=== PATIENT | male | born 1990 | race Hispanic/Latino ===

== ENCOUNTER 2020-03-04 13:07 | Emergency (ER) | payer MEDICAID, SELFPAY ==
--- NOTE | 2020-03-04 15:37 | RAD REPORT ---
EXAM DESCRIPTION: RAD - Foot Right 3 View - 03/04/2020 3:31 pm CLINICAL HISTORY: PAIN, blunt force trauma to the foot COMPARISON: No comparisons FINDINGS: Oblique fracture is present through the mid and distal proximal first phalanx. No distract ion or angulation component. First distal phalanx is intact. No other fracture changes identified. No acute bone or joint process otherwise noted. No air or foreign body in the soft tissues. IMPRESSION: Nondisplaced, nonangulated fracture of the first proximal phalanx right foot.
--- NOTE | 2020-03-04 15:40 | ER ---
Nurse's Notes [facility] Name: Jean Roman Age: 29 yrs Sex: Male : 1990 Arrival Date: 03/04/2020 Time: 13:10 Bed 24 Private MD: Diagnosis: Nondisplaced fracture of proximal phalanx of right great toe Presentation: 03/04 13:56 Chief complaint: Patient states: Toe pain x 2 days after a piece of furniture fell on ss it. Coronavirus screen: Client denies travel out of the [place] in the last 14 days. Ebola Screen: Patient denies exposure to infectious person. Patient denies travel to an Ebola-affected area in the 21 days before illness onset. Initial Sepsis Screen: Does the patient meet any 2 criteria? No. Patient's initial sepsis screen is negative. Does the patient have a suspected source of infection? No. Patient's initial sepsis screen is negative. Risk Assessment: Do you want to hurt yourself or someone else? Patient reports no desire to harm self or others. Onset of symptoms was March 02, 2020. 13:56 Method Of Arrival: Ambulatory ss 13:56 Acuity: GENARO 4 ss Triage Assessment: 16:21 General: Behavior is calm, cooperative, appropriate for age. zb Historical: - Allergies: 13:57 No Known Allergies; ss - Home Meds: 13:57 None [Active]; ss - PMHx: 13:57 None; ss - Immunization history:: Adult Immunizations up to date. - Social history:: Smoking status: Patient denies any tobacco usage or history of. Screenin:30 Abuse screen: Denies threats or abuse. Denies injuries from another. Nutritional zb screening: No deficits noted. Tuberculosis screening: No symptoms or risk factors identified. Fall Risk None identified. Assessment: 15:30 General: Appears in no apparent distress. uncomfortable. Pain: Complains of pain in zb right first toe Pain does not radiate. Pain currently is 10 out of 10 on a pain scale. Quality of pain is described as aching, tender. Neuro: No deficits noted. Cardiovascular: No deficits noted. Respiratory: No deficits noted. GI: No deficits noted. : No deficits noted. EENT: No deficits noted. Derm: Skin is intact, is healthy with good turgor, Skin is dry, Skin is normal, Skin temperature is warm Bruising that is dark purple, on right foot and right first toe. Musculoskeletal: Range of motion: limited in right first toe Swelling present in right foot and right first toe Tenderness present in right foot and right first toe Reports pain in right first toe Pain is 10 out of 10 on a pain scale. 16:19 Reassessment: Patient appears in no apparent distress at this time. Patient and/or zb family updated on plan of care and expected duration. Pain level reassessed. Patient is alert, oriented x 3, equal unlabored respirations, skin warm/dry/pink. d/c instructions given. pt given ortho shoe able to ambulate properly. gait steady and even. Patient denies pain at this time. Patient states feeling better. Vital Signs: 13:54 BP 127 / 74; Pulse 72; Resp 16; Temp 98.3(TE); Pulse Ox 100% on R/A; Weight 68.04 kg; ss Height 5 ft. 6 in. (167.64 cm); Pain 9/10; 13:54 Body Mass Index 24.21 (68.04 kg, 167.64 cm) ss ED Course: 13:10 Patient arrived in ED. bp1 13:57 Triage completed. ss 13:57 Arm band placed on right wrist. ss 14:01 Kanika Hernandez FNP-C [facility]. kb 14:01 Espinoza Nelson MD is Attending Physician. kb 14:53 Renata Tracy, FERCHO is Primary Nurse. zb 15:30 Patient has correct armband on for positive identification. Call light in reach. Side zb rails up X 1. Door closed. Noise minimized. 15:31 Foot Right 3 View XRAY In Process Unspecified. EDMS 16:20 No provider procedures requiring assistance completed. Patient did not have IV access zb during this emergency room visit. Administered Medications: 15:37 Drug: [place] (7.5 mg-325 mg) 1 tabs Route: PO; zb 16:00 Follow up: Response: No adverse reaction; RASS: Alert and Calm (0) zb Outcome: 15:39 Discharge ordered by . kb 16:20 Discharged to home ambulatory. zb 16:20 Condition: stable 16:20 Discharge instructions given to patient, Instructed on discharge instructions, follow up and referral plans. medication usage, Demonstrated understanding of instructions, follow-up care, medications, Prescriptions given X 1. 16:21 Patient left the ED. nelida Signatures: Dispatcher [employer] EDKanika Mccabe, JOHN GONZALEZ-Sabra Lee RN RN ss [place]ia[place], Brittany bp1 Brown, Zipporah, RN RN zb
--- NOTE | 2020-03-04 15:40 | EDPHYS ---
Physician Documentation [facility] Name: Jean Roman Age: 29 yrs Sex: Male : 1990 Arrival Date: 03/04/2020 Time: 13:10 Bed 24 Private MD: ED Physician Espinoza Nelson HPI: 03/04 15:33 This 29 yrs old Male presents to ER via Ambulatory with complaints of Toe kb Injury. 15:33 The patient presents with decreased range of motion, pain, swelling, tenderness. The kb complaints affect the right foot. Context: The problem was sustained at home, resulted from a heavy object falling, furniture or furniture accessory, the patient can fully bear weight, the patient is able to ambulate. Onset: The symptoms/episode began/occurred 2 day(s) ago. Modifying factors: The symptoms are alleviated by nothing, the symptoms are aggravated by weight bearing, movement. Associated signs and symptoms: Pertinent positives: swelling, Pertinent negatives: calf tenderness, fever, nausea, numbness, rash, tingling, vomiting, warmth, weakness. Severity of symptoms: At their worst the symptoms were moderate, in the emergency department the symptoms are unchanged. The patient has not experienced similar symptoms in the past. The patient has not recently seen a physician. pt reports he dropped a piece of furniture on his right great toe 2 days ago and believes it is broken. Historical: - Allergies: 13:57 No Known Allergies; ss - Home Meds: 13:57 None [Active]; ss - PMHx: 13:57 None; ss - Immunization history:: Adult Immunizations up to date. - Social history:: Smoking status: Patient denies any tobacco usage or history of. ROS: 15:33 Constitutional: Negative for fever, chills, and weight loss, Cardiovascular: Negative kb for chest pain, palpitations, and edema, Respiratory: Negative for shortness of breath, cough, wheezing, and pleuritic chest pain, Abdomen/GI: Negative for abdominal pain, nausea, vomiting, diarrhea, and constipation, Neuro: Negative for headache, weakness, numbness, tingling, and seizure. 15:33 MS/extremity: Positive for decreased range of motion, ecchymosis, pain, swelling, tenderness, of the right first toe. Exam: 15:33 Constitutional: This is a well developed, well nourished patient who is awake, alert, kb and in no acute distress. Head/Face: Normocephalic, atraumatic. Chest/axilla: Normal chest wall appearance and motion. Nontender with no deformity. No lesions are appreciated. Cardiovascular: Regular rate and rhythm with a normal S1 and S2. No gallops, murmurs, or rubs. Normal PMI, no JVD. No pulse deficits. Respiratory: Lungs have equal breath sounds bilaterally, clear to auscultation and percussion. No rales, rhonchi or wheezes noted. No increased work of breathing, no retractions or nasal flaring. Abdomen/GI: Soft, non-tender, with normal bowel sounds. No distension or tympany. No guarding or rebound. No evidence of tenderness throughout. Neuro: Awake and alert, GCS 15, oriented to person, place, time, and situation. Cranial nerves II-XII grossly intact. Motor strength 5/5 in all extremities. Sensory grossly intact. Cerebellar exam normal. Normal gait. 15:33 Musculoskeletal/extremity: Extremities: grossly normal except: noted in the right first toe: decreased ROM, ecchymosis, pain, swelling, tenderness, ROM: limited active range of motion due to pain, in the right first toe, Circulation is intact in all extremities. Sensation intact. Weight bearing: able to fully bear weight. Vital Signs: 13:54 BP 127 / 74; Pulse 72; Resp 16; Temp 98.3(TE); Pulse Ox 100% on R/A; Weight 68.04 kg; ss Height 5 ft. 6 in. (167.64 cm); Pain 9/10; 13:54 Body Mass Index 24.21 (68.04 kg, 167.64 cm) ss MDM: 14:35 Patient medically screened. kb 15:32 Data reviewed: vital signs, nurses notes. Data interpreted: Pulse oximetry: on room air kb is 100 %. Interpretation: normal. Counseling: I had a detailed discussion with the patient and/or guardian regarding: the historical points, exam findings, and any diagnostic results supporting the discharge/admit diagnosis, radiology results, the need for outpatient follow up, a orthopedic surgeon, to return to the emergency department if symptoms worsen or persist or if there are any questions or concerns that arise at home. 15:33 Test interpretation: by ED physician or midlevel provider: plain radiologic studies, nondisplaced fracture right great toe. 03/04 14:01 Order name: Foot Right 3 View XRAY; Complete Time: 15:40 kb 03/04 15:33 Order name: Ortho shoe; Complete Time: 16:16 Administered Medications: 15:37 Drug: [place] (7.5 mg-325 mg) 1 tabs Route: PO; zb 16:00 Follow up: Response: No adverse reaction; RASS: Alert and Calm (0) zb Disposition: 18:35 Co-signature as Attending Physician, Espinoza Nelson MD. rn Disposition: 03/04/20 15:39 Discharged to Home. Impression: Nondisplaced fracture of proximal phalanx of right great toe. - Condition is Stable. - Discharge Instructions: Toe Fracture, [id number]. - Prescriptions for Diclofenac Sodium 75 mg Oral Tablet, Delayed Release (E.C.) - take 1 tablet by ORAL route 2 times per day As needed; 30 tablet. - Medication Reconciliation Form, Thank You Letter, Antibiotic Education, Prescription Opioid Use form. - Follow up: Emergency Department; When: As needed; Reason: Worsening of condition. Follow up: Private Physician; When: 2 - 3 days; Reason: Recheck today's complaints, Continuance of care, Re-evaluation by your physician. Signatures: Dispatcher [employer] EDND Kanika Hernandez, CORPORATE SALES TRAINER-C CORPORATE SALES TRAINER-Ckb Espinoza Nelson MD MD rn Smirch, Shelby, RN RN ss Brown, Zipporah, RN RN zb Corrections: (The following items were deleted from the chart) 15:39 15:33 Musculoskeletal/extremity: Extremities: grossly normal except: noted in the right kb first toe: decreased ROM, ecchymosis, pain, swelling, tenderness, ROM: limited active range of motion due to pain, in the right first toe, Circulation is intact in all extremities. Sensation intact. 16:21 15:39 03/04/2020 15:39 Discharged to Home. Impression: Nondisplaced fracture of zb proximal phalanx of right great toe. Condition is Stable. Forms are Medication Reconciliation Form, Thank You Letter, Antibiotic Education, Prescription Opioid Use. Follow up: Emergency Department; When: As needed; Reason: Worsening of condition. Follow up: Private Physician; When: 2 - 3 days; Reason: Recheck today's complaints, Continuance of care, Re-evaluation by your physician. kb
[2020-03-04] MEDS ORDERED: HYDROCODONE/APAP 7.5/325 MG TAB ONE (15:51)
[2020-03-04 16:33] VITALS: BP 127/74; TEMP 98.3; O2SAT 100
== END 2020-03-04 16:21 | disposition home or self-care (01) ==
LOC: ER 13:07
DX: S92.414A Nondisplaced fracture of proximal phalanx of right great toe, initial encounter for closed fracture (principal); W20.8XXA Other cause of strike by thrown, projected or falling object, initial encounter; Y93.9 Activity, unspecified; Y92.9 Unspecified place or not applicable
CPT/HCPCS: 99283